=== PATIENT | female | born 1945 | race Caucasian/White ===

== ENCOUNTER → 2018-08-13 09:44 | Outpatient (CLI) | payer MEDICARE, OTHER, SELFPAY ==
--- NOTE | 2018-08-13 | DI.RAD.S_ITS ---
PROCEDURE: XR T AND L SPINE 4 TO 5 VIEWS INDICATIONS: ROUTINE MAMMO, SCOLIOSIS TECHNIQUE: 2 views acquired of the thoracolumbar spine. COMPARISON: [facility], JOSE, L-SPINE 2-3 VIEWS, 11/08/2015, 9:29. [facility], , THORACIC SPINE 3 VIEWS, 11/08/2015, 9:39. FINDINGS: Bones: No acute fractures or dislocations. Visualized inferior ribs appear intact. No suspicious bony lesions. 18 degrees of levoscoliosis from the inferior endplate of T7 to the inferior endplate of L3. 5 non-rib bearing lumbar vertebra noted. There is neutral coronal balance. Negative sagittal balance Soft tissues: No suspicious soft tissue calcifications. IMPRESSION: 18? of levoscoliosis from T7-L3. This appears subjectively unchanged although exact comparison measurements are precluded due to differences in exam technique Dictated by: Cortes Moulton M.D. on 08/13/2018 at 13:32 Approved by: Cortes Moulton M.D. on 08/13/2018 at 13:37
--- NOTE | 2018-08-13 | DI.MG.S_ITS ---
BILATERAL DIGITAL SCREENING MAMMOGRAM 3D/2D WITH CAD: 08/13/2018 CLINICAL: Routine screening. Comparison is made to exam dated: 07/30/2017 [facility]. The tissue of both breasts is heterogeneously dense. This may lower the sensitivity of mammography. Current study was also evaluated with a Computer Aided Detection (CAD) system. There is a mole marker on the left breast. No significant masses, calcifications, or other findings are seen in either breast. There has been no significant interval change. IMPRESSION: NEGATIVE There is no mammographic evidence of malignancy. A 1 year screening mammogram is recommended. This exam was interpreted at Station ID: [id number]. NOTE: For mammograms, a report in lay terms will be sent to the patient. Approximately 15% of breast malignancies will not be visualized mammographically. In the management of a palpable breast mass, a negative mammogram must not discourage biopsy of a clinically suspicious lesion. Electronically Signed By: Carlos rivas/braydon:08/13/2018 17:58:04 letter sent: Normal Exam ACR BI-RADS Category 1: Negative [id number]
== END ==
PROVIDERS: PCP Specialist; Visit Provider Specialist
DX: Z12.31 Encounter for screening mammogram for malignant neoplasm of breast (principal); M41.85 Other forms of scoliosis, thoracolumbar region
CPT/HCPCS: 72083; 77063; 77067

== ENCOUNTER → 2018-12-30 12:35 | Outpatient (CLI) | payer MEDICARE, OTHER, SELFPAY ==
--- NOTE | 2019-01-05 11:26 | PM.PFT.1 ---
Pulmonary Function Test Referral & Results Date Patient Seen: 12/30/18 Requesting provider: Anitra Wilson Results: The spirometry demonstrates an FVC of 2.50 L which is 96% of predicted. The FEV1 was measured at 1.80 L which is 93% of predicted. The FEV1/FVC ratio was 72 which is 96% of predicted. Following the administration of bronchodilator there was a 27% improvement in FEF 25-75%. Lung volumes show an SVC of 2.71 L which is 105% of predicted. The diffusing capacity was measured at 20.40 which is 94% of predicted. The maximum voluntary ventilation was minimally reduced Interpretation: This study demonstrates essentially normal pulmonary function
== END ==
PROVIDERS: PCP Specialist; Visit Provider Internal Medicine Critical Care Medicine
DX: R06.02 Shortness of breath (principal); J44.9 Chronic obstructive pulmonary disease, unspecified
CPT/HCPCS: 94060; 94726; 94729

== ENCOUNTER → 2020-10-17 12:53 | Outpatient (CLI) | payer MEDICARE, OTHER, SELFPAY ==
--- NOTE | 2020-10-17 | DI.RAD.S_ITS ---
PROCEDURE: FL BARIUM SWALLOW W SPEECH INDICATIONS: Dysphagia, unspecified COMPARISON: None. TECHNIQUE: Examination was conducted in conjunction with speech pathology per standard protocol. In the lateral projection, filming was performed of the patient swallowing. AP projection filming may also be performed with patient swallowing. COMPARISON: FINDINGS: Function: The oral preparatory phase appears normal, with proper containment. The subsequent oral propulsive phase, pharyngeal phase, and esophageal phase of swallowing also appear normal with all proffered substances. No laryngotracheal penetration or aspiration. No pathologic vallecular pooling. Morphology: No cricopharyngeal bar is identified. No cervical esophageal webs. No Zenker's diverticulum. No strictures. IMPRESSION: Normal examination. Dictated by: Katherine Sanz MD, PhD on 10/17/2020 at 17:04 Approved by: Katherine Sanz MD, PhD on 10/17/2020 at 17:04
--- NOTE | 2020-10-19 13:29 | ST.SWALLOW ---
Visit Care Team Role Provider Type Kaylah Velazco MD Primary Care Provider Non-Staff Specialty: Family Practice Address: [address] [place] [address], [place], [address] Email: Jame Wong MD Attending Provider Physician Referring Provider Specialty: Ear, Nose, Throat Address: [address] [place] [address], [id number] Email: [email or web address] Modified Barium Swallow Study D[employer] Modified Barium Swallow Study Start: 10/19/20 13:15 Freq: Status: Active Protocol: Document 10/17/20 13:15 LNK (Rec: 10/19/20 13:28 LNK [id number]) Modified Barium Swallow Study Total Time Visit Start Time 13:30 Visit Stop Time 14:00 Total Visit Minutes 30 Referral Referring Physician Jame Wong MD Setting Setting Outpatient Care Patient Information Identification Type Name,Date of Patient History Pt reported a medical history of osteogenesis imperfecta and has been recently coughing with eating and drinking. The pt indicated she was concerned that her epiglottis is not working correctly because of her diagnosis. She also reported she has chronic bronchitis and GERD. For GERD , the pt is using an alternative medical treatment that she is happy with. She reported no overt s/sx GERD at this time. Pt reported that recently she stopped consuming dairy products, which has resulted in reduced coughing. However, if she tries to drink alcoholic beverages, she will start to cough. Subjective Observations pt was seted in the fluoroscopy chair. Instruction and procedures were described to the pt. She indicated she understood and agreed to continue. Patient Positioning Position View Lateral Imaging Lateral View Textures Administered Trials Presented Thin Liquid via Spoon,Thin Liquid via Cup,Pudding Thick Liquid via Spoon,Regular Textures,Barium Tablet Oral Phase Source: MBSIMP (TM) (C) Bolus Specific Scoring Grid Lip Closure No Impairment (WNL) Tongue Control During Bolus Hold No Impairment (WNL) Bolus Prep/Mastication No Impairment (WNL) Bolus Transport/Lingual Motion No Impairment (WNL) A/P Lingual Propulsion Delay No Oral Residue No Impairment (WNL) Residue Clearing No Impairment (WNL) Nasal Regurgitation No Additional Oral Phase Observations Oral phase was WNL Pharyngeal Phase Source: MBSIMP (TM) (C) Bolus Specific Scoring Grid Delayed Initiation of Pharyngeal Swallow No Soft Palate Elevation No Impairment (WNL) Tongue Base Strength/Range of Motion No Impairment (WNL) Residue Along the Tongue Base Trace to minimal Laryngeal Elevation No Impairment (WNL) Anterior Hyoid Movement No Impairment (WNL) Epiglottic Range of Motion No Impairment (WNL) Vallecular Residue No: Trace to minimal - cleared with dry swallow Laryngeal Vestibular Closure No Impairment (WNL) Pharyngeal Stripping Wave No Impairment (WNL) Posterior Pharyngeal Wall Residue No Upper Esophageal Sphincter Opening No Impairment (WNL) Residue in the Pyriform Sinuses No Esophageal Clearance Upright Position WFL Pharyngoesophageal Backflow Observed No Additional Pharyngeal Phase Observations Pharyngeal phase was WNL. Very prompt and normal swallows A/P View Clinical Impressions Dysphagia Type No oral/pharyngeal dysphagia observed Findings Normal swallow Patient Appropriate for Therapy No Recommendations Treatment Plan Recommended Referrals Primary Care Physician,ENT Consult
== END ==
PROVIDERS: PCP Specialist; Referring Provider Otolaryngology; Visit Provider Otolaryngology
DX: R13.10 Dysphagia, unspecified (principal)
CPT/HCPCS: 74230; 92611

== ENCOUNTER → 2022-12-20 12:41 | Outpatient (CLI) | payer MEDICARE, OTHER, SELFPAY ==
--- NOTE | 2022-12-20 | DI.CT.S_ITS ---
PROCEDURE: CT CHEST HIGH RESOLUTION INDICATIONS: BRONCHIECTASIS TECHNIQUE: Noncontrast 1.0 and 5.0 mm thick contiguous axial sections from the pulmonary apex to the posterior costophrenic angles, with 7 mm thick coronal and sagittal MIP reformats. 1 mm thick dynamic expiratory images acquired through the upper, mid, and lower lungs. 1.0 mm thick axial sections acquired from the luis to the posterior costophrenic angles in the prone end-inspiration position. For radiation dose reduction, the following was used: automated exposure control, adjustment of mA and/or kV according to patient size. COMPARISON: Outside Film, CT, CT CHEST WITHOUT CONTRAST, 02/14/2022, 16:13. FINDINGS: Image quality: Excellent. Lungs: Diffuse bronchiectasis, most prominent within the lingula, right middle lobe and right lower lobe. Significant air trapping in the right lower lobe and left upper lobe. No honeycombing. There are diffuse pulmonary nodules, some of which are cavitating, while others use to demonstrate cavitation but now have filled in with solid components. For instance: -1.9 cm juxtapleural nodule in the posterior left upper lobe is solid, previously cystic measuring 1.5 cm (series 2, image 62). -2.6 cm cavitary nodule in the left lower lobe, previously 2.4 cm and solid (series 2, image 134). -new 1.6 cm solid nodule, posterior right lower lobe (series 2, image 122). Pleura: No pleural effusions or pneumothorax. Mediastinum: Heart size is normal. No pericardial effusion. Thoracic aorta and central pulmonary arteries are normal in size. Esophagus is normal in caliber. Bones and chest wall: No suspicious bony lesions. No vertebral body compression fractures. Abdomen: Visualized upper abdominal solid organs and bowel loops appear normal. IMPRESSION: Diffuse bronchiectasis with associated air trapping and cavitary and non cavitary pulmonary nodules. 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 Given the presence of cavitary nodules and the presence of a new 1.6 cm solid nodule in the posterior right lower lobe, three-month follow-up is recommended. Pulmonology referral is recommended if not already performed. Dictated by: Jose Angel Pina M.D. on 12/20/2022 at 13:48 Approved by: Jose Angel Pina M.D. on 12/20/2022 at 13:59
== END ==
PROVIDERS: PCP Specialist; Referring Provider Internal Medicine Pulmonary Disease; Visit Provider Internal Medicine Pulmonary Disease
DX: J47.9 Bronchiectasis, uncomplicated (principal); R91.8 Other nonspecific abnormal finding of lung field; Z22.39 Carrier of other specified bacterial diseases
CPT/HCPCS: 71250

== ENCOUNTER → 2022-12-20 | Outpatient (CLI) | payer MEDICARE, OTHER, SELFPAY | LOC: RESP 12:48 | PROVIDERS: PCP Specialist; Referring Provider Internal Medicine Pulmonary Disease; Visit Provider Internal Medicine Pulmonary Disease | DX: J47.9 Bronchiectasis, uncomplicated (principal); Z22.39 Carrier of other specified bacterial diseases | CPT/HCPCS: 71250; 94060; 94726; 94729 ==